=== PATIENT | male | born 1975 | race Caucasian/White ===

== ENCOUNTER 2018-07-17 18:49 | Emergency (ER) | payer BC ==
[2018-07-17] MEDS: HYDROmorphONE 1 MG/ML SYG IV (20:56)
[2018-07-17] MEDS: ONDANSETRON 4 MG INJ IV (20:56)
[2018-07-17] MEDS: SOD CHLORIDE 0.9% 1,000 ML IV (20:56)
[2018-07-17 21:15] LABS: ADD MAN DIFF? NO
[2018-07-17 21:17] LABS: BASOPHIL # 0.1 10^3/ul (0.0-0.1); BASOPHILS % 0.5 % (0.0-2.0); EOSINOPHILS # 0.3 10^3/ul (0.0-0.5); EOSINOPHILS % 1.7 % (0.0-7.0); HEMATOCRIT 45.3 % (42.0-52.0); HEMOGLOBIN 14.3 g/dl (14.0-18.0); LYMPHOCYTES # 3.1 10^3/ul (0.8-2.9); MEAN CORPUSCULAR HEMOGLOBIN 23.8 pg (29.0-33.0); MEAN CORPUSCULAR HGB CONC 31.6 g/dl (32.0-37.0); MEAN CORPUSCULAR VOLUME 75.4 fl (82.0-101.0); MEAN PLATELET VOLUME 10.1 fl (7.4-10.4); MONOCYTE # 1.4 10^3/ul (0.3-0.9); MONOCYTES % 8.9 % (0.0-11.0); NEUTROPHIL # 10.6 10^3/ul (1.6-7.5); NEUTROPHILS % 68.2 % (39.0-77.0); PLATELET COUNT 257 10^3/UL (140-415); RED BLOOD COUNT 6.01 10^6/ul (4.70-6.10); RED CELL DISTRIBUTION WIDTH 16.3 % (11.5-14.5)
[2018-07-17 21:17] LABS: WHITE BLOOD COUNT 15.5 10^3/ul (4.8-10.8)
[2018-07-17 21:35] LABS: ALANINE AMINOTRANSFERASE 33 IU/L (13-69); ALBUMIN 4.5 g/dl (3.3-4.9); ALBUMIN/GLOBULIN RATIO 1.55; ALKALINE PHOSPHATASE 62 IU/L (42-121); ANION GAP 9 (5-13); ASPARTATE AMINO TRANSFERASE 26 IU/L (15-46); BILIRUBIN,INDIRECT 0.4 mg/dl (0-1.1); BILIRUBIN,TOTAL 0.4 mg/dl (0.2-1.3); BLOOD UREA NITROGEN 16 mg/dl (7-20); CALCIUM 9.4 mg/dl (8.4-10.2); CARBON DIOXIDE 26 mmol/L (21-31); CHLORIDE 107 mmol/L (97-110); CREATININE 1.01 mg/dl (0.61-1.24); Estimated GFR > 60 mL/min (>60); GLUCOSE 88 mg/dl (70-220); LIPASE 71 U/L (23-300); SODIUM 142 mmol/L (135-144); TOTAL PROTEIN 7.4 g/dl (6.1-8.1)
[2018-07-17] MEDS: SOD CHLORIDE 0.9% 100 ML (21:54)
[2018-07-17] MEDS: IOHEXOL 300MG/ML 150 ML BTL ×2 (21:54→23:00)
== END 2018-07-18 00:38 | disposition home or self-care (01) ==
LOC: E/R 07-18 00:38
DX: S40.811A Abrasion of right upper arm, initial encounter (principal); F17.210 Nicotine dependence, cigarettes, uncomplicated; R07.81 Pleurodynia; V29.40XA Motorcycle driver injured in collision with unspecified motor vehicles in traffic accident, initial encounter
CPT/HCPCS: 36415; 70450; 71045; 71260; 72125; 73090-RT; 74177; 80053; 83690; 85025; 93005; 96374; 96375; 99285-25

== ENCOUNTER 2018-07-19 12:36 | Emergency (ER) | payer BC ==
[2018-07-19] MEDS: MUPIROCIN 2% 22 GM OINT TOP (13:23)
== END 2018-07-19 14:29 | disposition left against medical advice (07) ==
LOC: FTE 12:36
DX: Z48.01 Encounter for change or removal of surgical wound dressing (principal); Z87.891 Personal history of nicotine dependence
CPT/HCPCS: 99283